=== PATIENT | female | born 1970 | race Caucasian/White ===

== ENCOUNTER 2017-08-02 16:51 | Outpatient (RCR) | payer OTHER ==
[~2017-08-02 16:51] MED LIST: ADVAIR; ALBU0.8322 IH; ALBU17AE23 IH; CARV25TA PO; CETI10CA PO; CHOL500019 PO; CLIN300C3 PO; CYAN100053 IM; CYMBALTA; DICY20TA57 PO; DULO60CA58 PO; DULO60CA6 PO; FLUT1DIS26 IH; HCT25T PO; LACT1CAP64 PO; LEVO125T6 PO; LNS30CCR PO; LVT.112T PO; MECL-105 PO; MNTL10T PO; NEBI5TAB8 PO; NFNEB10T PO; ONDA-42 SL; PRD10T PO; PREVACID; SULF1TAB38 PO; TRAM-21 PO; TRICOR
== END 2017-10-31 | disposition home or self-care (01) ==
LOC: LAB 16:51
PROVIDERS: ATTEND Nurse Practitioner Family
DX: R19.7 Diarrhea, unspecified (principal)
CPT/HCPCS: 87045; 87046; 87324; 87449

== ENCOUNTER 2018-07-12 02:23 | Emergency (ER) | payer OTHER ==
[~2018-07-12] VITALS: Ht 167.6 cm; Wt 113.4 kg
[2018-07-12] MEDS ORDERED: LACTATED RINGERS 1,000 ML IV ONE (03:47)
[2018-07-12] MEDS ORDERED: RX-OSELTAMIVIR 75 MG (TAMIFLU) BOX OF 10 PO STA (03:47)
[2018-07-12] MEDS ORDERED: ONDANSETRON 4 MG/2 ML (SDV) Z0FRAN IVP ONE (04:00)
[2018-07-12] MEDS ORDERED: KETOROLAC 30 MG/ML VIAL IVP ONE (04:00)
[2018-07-12] MEDS ORDERED: ONDA4TAB11 PO (04:07)
[2018-07-12] MEDS ORDERED: GUAI1TBM19 PO (04:07)
[2018-07-12] MEDS ORDERED: BENZ100C18 PO (04:07)
--- NOTE | 2018-07-12 04:07 | ED Cough/URI ---
General Chief Complaint: Cough/Cold/Flu Symptoms Stated Complaint: FLU SYMPTOMS Nursing Triage Note: AMBULATORY TO ED WITH C/O COUGH FOR A FEW DAYS AND NASAL DRAINAGE. TRIED MUCINEX AND ROBITUSSIN YESTERDAY. NO OTHER MEDICATIONS. C/O NAUSEA, NO VOMITING, UNKNOWN IF HAD FEVER BUT FEELS HOT AND COLD ON AND OFF, PRESENTS THIS AM "FEELING DEHYDRATED, HEADACHE TO BILATERAL TEMPLES AND BEHIND BOTH EYES. Source: patient History of Present Illness Date Seen by Provider: Jul 12, 2018 Time Seen by Provider: 03:25 Initial Comments PT ARRIVES VIA POV FROM HOME C/O "FLU SYMPTOMS" SINCE TUESDAY AFTERNOON WORSE ON TUESDAY/EARLIER TODAY C/O NON-PRODUCTIVE COUGH AND NASAL CONGESTION WITH CLEAR NASAL DRAINAGE C/O HEADACHE C/O BODY ACHES C/O CHILLS, NO KNOWN FEVER BUT HAS NOT CHECKED TEMP + NAUSEA, NO VOMITING NO CHEST PAIN OR SHORTNESS OF BREATH, BUT HER CHEST AND BODY HURT WHEN SHE COUGHS HAS COPD AND USES ADVAIR DAILY AND RESCUE INHALER PRN, WHICH SHE HAS USED A FEW TIMES STATES "I FEEL REALLY DEHYDRATED" STATES SHE HAS NOT BEEN DRINKING, --"JUST DIDN 'T FEEL LIKE IT" AND HAS BEEN SLEEPING ALOT DRANK 3 OZ OF 7-UP SINCE 0 TONIGHT, AND HAS ONLY HAD 16 OZ OF PEPSI TODAY-- NOTHING ELSE TO DRINK AT ALL TODAY, AND HAS NOT EATEN TODAY. VOIDED "SOMETIME EARLIER TONIGHT" GRAND DAUGHTER HAS HAD " BAD COLD" THIS WEEK AND PT IS AROUND HER ALOT. TOOK MUCINEX AND ROBITUSSIN YESTERDAY, OTHERWISE HAS NOT TAKEN ANYTHING FOR SYMPTOMS PT DID RECEIVE FLU VACCINATION IN MARCH 2018 PCP: DR. CARTER/ NICOLLE CARTER Allergies and Home Medications Allergies Coded Allergies: carbamazepine (Unverified Allergy, Unknown, 05/06/14) Home Medications Albuterol 17 Gm Aerosol, 2 PUFF IH Q4H PRN for WHEEZING, (Reported) Benzonatate 100 Mg Capsule, 1-2 TAB PO TID Prescribed by: ALIYAH WU on 07/12/18 0407 Carvedilol 25 Mg Tablet, 25 MG PO BID, (Reported) Cetirizine Hcl 10 Mg Capsule, 10 MG PO DAILY, (Reported) Cholecalciferol (Vitamin D3) 50,000 Unit Capsule, 50,000 UNIT PO DAILY, ( Reported) Cyanocobalamin 1,000 Mcg/Ml Vial, 1,000 MCG IM UD, (Reported) monthly Duloxetine HCl 60 Mg Capsule.dr, 60 MG PO DAILY, (Reported) Fluticasone/Salmeterol 1 Disk Inhp, 1 PUFF IH BID, (Reported) Guaifenesin/Dextromethorphan 1 Each Tbmp.12hr, 1 EACH PO BID Prescribed by: ALIYAH WU on 07/12/18406 Hydrochlorothiazide 25 Mg Tab, 25 MG PO DAILY, (Reported) Lactobacillus Combo No.11 1 Each Cap.sprink, 1 EACH PO DAILY, (Reported) Lansoprazole 30 Mg Cap, 1 TAB PO DAILY, (Reported) Levothyroxine Sodium 112 Mcg Tab, 112 MG PO DAILY, (Reported) Levothyroxine Sodium 125 Mcg Tablet, 1 EACH PO DAILY Prescribed by: KYMBERLY BOLTON on 08/20/14 123 Meclizine Hcl 25 Mg Tablet, 25 MG PO Q8H Prescribed by: KYMBERLY BOLTON on 08/20/14 123 Ondansetron 4 Mg Tab.rapdis, 4 MG PO Q4H Prescribed by: ALIYAH WU on 07/12/18406 Ondansetron Hcl 4 Mg Tab, 4 MG SL Q4H FOR NAUSEA AND VOMITING Prescribed by: KYMBERLY BOLTON on 08/20/14 123 Prednisone 10 Mg Tab, 10 MG PO DAILY Take 2 tablets on day one Prescribed by: SANTY CAMACHO on 04/15/15 9298 Patient Home Medication List Home Medication List Reviewed: Yes Review of Systems Review of Systems Constitutional: see HPI, chills, dizziness, malaise, weakness EENTM: see HPI, nose congestion; No throat pain Respiratory: see HPI, cough; No short of breath; wheezing Cardiovascular: no symptoms reported Gastrointestinal: see HPI; No abdominal pain, No diarrhea; loss of appetite, nausea Genitourinary: see HPI, decreased output Musculoskeletal: see HPI, other (BODY ACHES) Skin: no symptoms reported; No rash Psychiatric/Neurological: See HPI, Headache Hematologic/Lymphatic: No Symptoms Reported Immunological/Allergic: no symptoms reported Past Spiwgjt-Mkwbrj-Lwgmve Hx Patient Social History Alcohol Use: Denies Use Recreational Drug Use: No Smoking Status: Former Smoker (1 PPD, QUIT IN 2008) Recent Foreign Travel: No Contact w/Someone Who Travel: No Recent Infectious Disease Expo: No Recent Hopitalizations: No Immunizations Up To Date Date of Influenza Vaccine: Mar 27, 2018 Past Medical History Surgeries: Yes (TEAR DUCT OPENED) Gallbladder, Thyroidectomy Respiratory: Yes COPD Cardiac: Yes Hypertension Neurological: Yes Neuropathy Reproductive Disorders: No Genitourinary: No Gastrointestinal: Yes Gastroesophageal Reflux Musculoskeletal: No Endocrine: Yes Hypothyroidsim HEENT: No Cancer: No Psychosocial: No Integumentary: No Blood Disorders: No Physical Exam Vital Signs - First Documented 07/12/18 07/12/18 03:23 05:23 Temp 98.3 Pulse 91 Resp 20 B/P (MAP) 125/66 (85) Pulse Ox 99 O2 Delivery Room Air Capillary Refill : Less Than 3 Seconds Height: 5'6" Weight: 250lbs. oz. 113.921242ys; 38.41 BMI Method:Stated General Appearance: WD/WN, no apparent distress, obese, other (LOOKS MILDLY ILL ) HEENT: PERRL/EOMI, other (NASAL CONGESTION, CLEAR NASAL DRAINAGE. NO SINUS TENDERNESS) Neck: normal inspection Respiratory: normal breath sounds, no respiratory distress, no accessory muscle use Cardiovascular: regular rate, rhythm, no edema, no murmur Gastrointestinal: normal bowel sounds, non tender, soft Extremities: normal inspection, normal capillary refill Neurologic/Psychiatric: social services counselor II-XII nml as tested, no motor/sensory deficits, alert, normal mood/affect, oriented x 3 Skin: normal color, warm/dry Progress/Results/Core Measures Suspected Sepsis Recent Fever Within 48 Hours: No Infection Criteria Present: Suspected New Infection New/Unexplained Altered Menta: No Sepsis Screen: No Definite Risk SIRS Temperature:98.3 Pulse: 91 Respiratory Rate: 20 Laboratory Tests 07/12/18 04:05: White Blood Count 7.2 Blood Pressure 125 /66 Mean: 85 Laboratory Tests 07/12/18 04:05: Creatinine 0.82, Platelet Count 293, Total Bilirubin 0.3 Results/Orders Lab Results Laboratory Tests Test 07/12/18 04:05 Range/Units White Blood Count 7.2 4.3-11.0 10^3/uL Red Blood Count 4.12 L 4.35-5.85 10^6/uL Hemoglobin 12.2 11.5-16.0 G/DL Hematocrit 39 35-52 % Mean Corpuscular Volume 93 80-99 FL Mean Corpuscular Hemoglobin 30 25-34 PG Mean Corpuscular Hemoglobin Concent 32 32-36 G/DL Red Cell Distribution Width 14.1 10.0-14.5 % Platelet Count 293 130-400 10^3/uL Mean Platelet Volume 8.6 7.4-10.4 FL Neutrophils (%) (Auto) 79 H 42-75 % Lymphocytes (%) (Auto) 8 L 12-44 % Monocytes (%) (Auto) 12 0-12 % Eosinophils (%) (Auto) 1 0-10 % Basophils (%) (Auto) 0 0-10 % Neutrophils # (Auto) 5.7 1.8-7.8 X 10^3 Lymphocytes # (Auto) 0.6 L 1.0-4.0 X 10^3 Monocytes # (Auto) 0.8 0.0-1.0 X 10^3 Eosinophils # (Auto) 0.1 0.0-0.3 10^3/uL Basophils # (Auto) 0.0 0.0-0.1 10^3/uL Sodium Level 137 135-145 MMOL/L Potassium Level 3.9 3.6-5.0 MMOL/L Chloride Level 100 98-107 MMOL/L Carbon Dioxide Level 25 21-32 MMOL/L Anion Gap 12 5-14 MMOL/L Blood Urea Nitrogen 10 7-18 MG/DL Creatinine 0.82 0.60-1.30 MG/DL Estimat Glomerular Filtration Rate > 60 BUN/Creatinine Ratio 12 Glucose Level 128 H 70-105 MG/DL Calcium Level 9.3 8.5-10.1 MG/DL Corrected Calcium 9.5 8.5-10.1 MG/DL Total Bilirubin 0.3 0.1-1.0 MG/DL Aspartate Amino Transf (AST/SGOT) 99 H 5-34 U/L Alanine Aminotransferase (ALT/SGPT) 56 H 0-55 U/L Alkaline Phosphatase 60 40-136 U/L Total Protein 7.1 6.4-8.2 GM/DL Albumin 3.8 3.2-4.5 GM/DL Micro Results Microbiology 07/12/18 Influenza Types A,B Antigen (YANE) - Final, Complete My Orders Orders - ALIYAH WU DO Influenza A And B Antigens (07/12/18 03:23) Saline Lock/Iv-Start (07/12/18 03:47) Cbc With Automated Diff (07/12/18 03:47) Comprehensive Metabolic Panel (07/12/18 03:47) Saline Lock/Iv-Start (07/12/18 03:47) Lactated Ringers (Lr 1000 Ml Iv Solution (07/12/18 03:47) Ondansetron Injection (Zofran Injectio (07/12/18 04:00) Rx-Oseltamivir Caps (Rx-Tamiflu Caps) (07/12/18 03:47) Ketorolac Injection (Toradol Injection) (07/12/18 04:00) Medications Given in ED Current Medications Medications Dose Ordered Sig/Hugo Route Start Time Stop Time Status Last Admin Dose Admin Ketorolac Tromethamine 30 mg ONCE ONCE IVP 07/12/18 04:00 07/12/18 04:01 DC 07/12/18 04:05 30 MG Lactated Ringer's 1,000 ml @ 0 mls/hr Q0M ONCE IV 07/12/18 03:47 07/12/18 03:49 DC 07/12/18 04:05 999 MLS/HR Ondansetron HCl 4 mg ONCE ONCE IVP 07/12/18 04:00 07/12/18 04:01 DC 07/12/18 04:05 4 MG Vital Signs/I&O 07/12/18 07/12/18 03:23 05:23 Temp 98.3 98.3 Pulse 91 91 Resp 20 20 B/P (MAP) 125/66 (85) 130/65 (86) Pulse Ox 99 O2 Delivery Room Air Capillary Refill : Less Than 3 Seconds Blood Pressure Mean: 85 Progress Note : Progress Note UNEVENTFUL ER STAY PT STATES SHE FEELS BETTER AT DISMISSAL Departure Impression Primary Impression: Influenza A Additional Impressions: Volume depletion MILDLY ELEVATED LIVER ENZYMES Disposition: HOME, SELF-CARE Condition: Improved Departure-Patient Inst. Referrals: FRANCI CARTER DO (PCP/Family) Primary Care Physician Patient Instructions: Dehydration, Adult (DC), Flu, Adult (DC) Add. Discharge Instructions: LOTS OF CLEAR LIQUIDS--WATER, BROTH, JELLO, GATORADE--DRINK ENOUGH SO YOU ARE URINATING EVERY 2-3 HOURS WHILE AWAKE TYLENOL 1 GRAM / MOTRIN 800 MG 4 TIMES A DAY NEEDED FOR PAIN OR FEVER TAKE TAMIFLU TWICE A DAY FOR 5 DAYS FOLLOW UP WITH YOUR DR IN 3-4 DAYS IF NO BETTER RETURN TO ER IF WORSE All discharge instructions reviewed with patient and/or family. Voiced understanding. Scripts Ondansetron (Ondansetron Odt) 4 Mg Tab.rapdis 4 MG PO Q4H for Nausea/Vomiting, #10 TAB Prov: ALIYAH WU DO 07/12/18 Benzonatate (TESSALON PERLES) 100 Mg Capsule 1-2 TAB PO TID for Cough, #30 CAP Prov: ALIYAH WU DO 07/12/18 Guaifenesin/Dextromethorphan (Mucinex Dm ER 1,200-60 mg Tab) 1 Each Tbmp.12hr 1 EACH PO BID for 10 Days, #20 EA Prov: ALIYAH WU DO 07/12/18 ALIYAH WU DO Jul 12, 2018 04:07
[2018-07-12 04:22] LABS: BASOPHILS % (AUTO) 0 % (0-10); EOSINOPHILS # (AUTO) 0.1 10^3/uL (0.0-0.3); EOSINOPHILS % (AUTO) 1 % (0-10); HEMATOCRIT 39 % (35-52); HEMOGLOBIN 12.2 G/DL (11.5-16.0); LYMPHOCYTES # (AUTO) 0.6 X 10^3 (1.0-4.0); LYMPHOCYTES % (AUTO) 8 % (12-44); MEAN CORPUSCULAR HEMOGLOBIN 30 PG (25-34); MEAN CORPUSCULAR HGB CONC 32 G/DL (32-36); MEAN CORPUSCULAR VOLUME 93 FL (80-99); MEAN PLATELET VOLUME 8.6 FL (7.4-10.4); MONOCYTES # (AUTO) 0.8 X 10^3 (0.0-1.0); MONOCYTES % (AUTO) 12 % (0-12); NEUTROPHILS # (AUTO) 5.7 X 10^3 (1.8-7.8); NEUTROPHILS % (AUTO) 79 % (42-75); PLATELET COUNT 293 10^3/uL (130-400); RED BLOOD COUNT 4.12 10^6/uL (4.35-5.85); RED CELL DISTRIBUTION WIDTH 14.1 % (10.0-14.5); WHITE BLOOD COUNT 7.2 10^3/uL (4.3-11.0)
[2018-07-12 04:42] LABS: ALANINE AMINOTRANSFERASE 56 U/L (0-55); ALBUMIN 3.8 GM/DL (3.2-4.5); ALKALINE PHOSPHATASE 60 U/L (40-136); BILIRUBIN,TOTAL 0.3 MG/DL (0.1-1.0); BUN/CREATININE RATIO 12; CALCIUM 9.3 MG/DL (8.5-10.1); CARBON DIOXIDE 25 MMOL/L (21-32); CHLORIDE 100 MMOL/L (98-107); CREATININE SERUM 0.82 MG/DL (0.60-1.30); GFR ESTIMATED > 60; GLUCOSE 128 MG/DL (70-105); POTASSIUM 3.9 MMOL/L (3.6-5.0); SODIUM 137 MMOL/L (135-145); TOTAL PROTEIN 7.1 GM/DL (6.4-8.2)
[2018-07-12 05:23] VITALS: BP 130/65
== END 2018-07-12 05:24 | disposition home or self-care (01) ==
LOC: EDUNIT# 02:23 → ER 02:25
DX: J10.1 Influenza due to other identified influenza virus with other respiratory manifestations (principal); E86.9 Volume depletion, unspecified; R94.5 Abnormal results of liver function studies; J44.9 Chronic obstructive pulmonary disease, unspecified; I10 Essential (primary) hypertension; E03.9 Hypothyroidism, unspecified; K21.9 Gastro-esophageal reflux disease without esophagitis; Z88.8 Allergy status to other drugs, medicaments and biological substances; Z79.51 Long term (current) use of inhaled steroids; Z79.52 Long term (current) use of systemic steroids; Z87.891 Personal history of nicotine dependence; Z98.890 Other specified postprocedural states
CPT/HCPCS: 36415; 80053; 85025; 87804

== ENCOUNTER 2019-09-14 13:02 | Outpatient (CLI) | payer BC ==
[~2019-09-14] VITALS: Ht 167.7 cm; Wt 105.9 kg
[~2019-09-14 13:02] MED LIST changes: +BENZ100C18 PO; +GUAI1TBM19 PO; +ONDA4TAB11 PO
[2019-09-14 13:10] VITALS: BP 114/70
[2019-09-14] MEDS ORDERED: NS IV 500 ML 500 ML ONE (13:29)
[2019-09-14] MEDS ORDERED: NS IV 500 ML 500 ML IV SCH ×2 (14:00)
[2019-09-14 14:55] VITALS: BP 114/54
[2019-09-14 15:10] VITALS: BP 110/61
[2019-09-14 16:52] VITALS: BP 125/65
[2019-09-14 17:18] LABS: HEMOGLOBIN 7.5 G/DL (11.5-16.0)
--- NOTE | 2019-09-14 17:45 | NUR ---
Hgb 7.5, no further transfusion per protocol. IV dc'd, tip of cath intact. Pt escorted to front door where she was picked up by her ride per private car. Pt verbalizes understanding of post blood instructions, no s/s of distress, or c/o upon discharge.
== END 2019-09-14 17:45 | disposition home or self-care (01) ==
LOC: SDC 13:02
PROVIDERS: ATTEND Nurse Practitioner Family
DX: D64.9 Anemia, unspecified (principal)
CPT/HCPCS: 36415; 36430; 85014; 85018; 86850; 86900; 86901; 86920

== ENCOUNTER 2019-10-01 14:08 | Outpatient (RCR) | payer BC ==
[2019-10-08] MEDS ORDERED: LEVO100T7 PO (15:58)
[2019-10-08] MEDS ORDERED: CETI10TA17 PO (15:58)
[2019-10-08] MEDS ORDERED: HYDR25TA4 PO (15:58)
[2019-10-08] MEDS ORDERED: DULO60CA59 PO (15:58)
[2019-10-08] MEDS ORDERED: MONT10TA26 PO (16:08)
[2019-10-08] MEDS ORDERED: NFNEB10T PO (16:08)
[2019-10-08] MEDS ORDERED: ONDA8TAB13 PO (16:08)
[2019-10-08] MEDS ORDERED: DEXT5TAB19 PO (16:08)
[2019-10-08] MEDS ORDERED: LIOTHYSO5 PO (16:08)
[2019-10-08] MEDS ORDERED: IRON PO (16:12)
== END 2019-12-30 | disposition home or self-care (01) ==
LOC: ONC 14:08
PROVIDERS: ATTEND Internal Medicine Hematology & Oncology
DX: D64.9 Anemia, unspecified (principal)

== ENCOUNTER 2019-10-08 14:37 | Outpatient (RCR) | payer BC ==
[~2019-10-08] VITALS: Ht 167.7 cm; Wt 106.8 kg
[2019-10-08] VITALS (9 sets, daily range): BP systolic 116–131; BP diastolic 61–80
[~2019-10-08 14:37] MED LIST changes: -CETI10TA17 PO; -DEXT5TAB19 PO; -DULO60CA59 PO; -HYDR25TA4 PO; -IRON PO; -LEVO100T7 PO; -LIOTHYSO5 PO; -MONT10TA26 PO; -ONDA8TAB13 PO
[2019-10-08] MEDS ORDERED: DULO60CA59 PO (15:58)
[2019-10-08] MEDS ORDERED: LEVO100T7 PO (15:58)
[2019-10-08] MEDS ORDERED: CETI10TA17 PO (15:58)
[2019-10-08] MEDS ORDERED: HYDR25TA4 PO (15:58)
[2019-10-08] MEDS ORDERED: NS IV 500 ML 500 ML ONE (15:59)
[2019-10-08] MEDS ORDERED: LIOTHYSO5 PO (16:08)
[2019-10-08] MEDS ORDERED: NFNEB10T PO (16:08)
[2019-10-08] MEDS ORDERED: DEXT5TAB19 PO (16:08)
[2019-10-08] MEDS ORDERED: MONT10TA26 PO (16:08)
[2019-10-08] MEDS ORDERED: ONDA8TAB13 PO (16:08)
[2019-10-08] MEDS ORDERED: IRON PO (16:12)
--- NOTE | 2019-10-08 19:19 | NUR ---
Took over care of patient, sitting in recliner, no s/s of distress. iv site assessed. patient states small amount of discomfort but is able to continue. no swelling, redness or firmness at iv site. Addendum: 10/08/19 at 1926 by HAL VARGAS RN Care assumed from Geetha Hampton
--- NOTE | 2019-10-08 21:30 | NUR ---
TRANSFUSION OF 2ND UNIT PRBC COMPLETED. NO S/S OF REACTION. NO FOLLOW UP LAB ORDERS. PATIENT COLLECTED BELONGINGS AND WAS WC ASSISTED TO EXIT BY STAFF. PATIENT LEFT IN STABLE CONDITION BY PRIVATE VEHICLE.
== END 2020-01-06 | disposition home or self-care (01) ==
LOC: SDC 14:37
PROVIDERS: ATTEND Nurse Practitioner Family
DX: D64.9 Anemia, unspecified (principal)
CPT/HCPCS: 36430; 86850; 86900; 86901; 86920; P9016; 36415

== ENCOUNTER → 2019-10-08 | Outpatient (CLI) | payer BC ==
[~2019-10-08] MED LIST changes: +CETI10TA17 PO; +DEXT5TAB19 PO; +DULO60CA59 PO; +HYDR25TA4 PO; +IRON PO; +LEVO100T7 PO; +LIOTHYSO5 PO; +MONT10TA26 PO; +ONDA8TAB13 PO
--- NOTE | 2019-10-08 12:09 | Diagnostic Imaging Report ---
PROCEDURE: US Non-ob pelvis comp/trans. TECHNIQUE: Multiple realtime grayscale images were obtained of the pelvis in various projections endovaginally. Transabdominal imaging was also performed. INDICATION: Dysfunctional uterine bleeding. Anemia. COMPARISON: None available. FINDINGS: The uterus measures 10.0 x 5.4 x 7.9 cm. The myometrium is normal in echogenicity without discrete mass. The endometrium measures up to 2.2 cm and has heterogeneous echogenicity with vascularity noted. The right nor left ovary are seen with certainty. There is a simple cyst in the right adnexa measuring 4.0 x 3.5 x 3.6 cm. No free pelvic fluid. IMPRESSION: 1. Abnormal thickened endometrium measures up to 2.2 cm with vascularity present. This is concerning for endometrial neoplasm versus polyp. If not already performed, a gynecology consultation is recommended. 2. Simple right ovarian cyst measures 4.0 cm could be physiologic in perimenopausal woman. Advise a follow-up pelvic ultrasound in 6-12 months to assess stability. Dictated by: Dictated on workstation # [id number]
== END ==
LOC: RAD 10:15
PROVIDERS: ATTEND Nurse Practitioner
DX: N93.8 Other specified abnormal uterine and vaginal bleeding (principal); D64.9 Anemia, unspecified; N83.201 Unspecified ovarian cyst, right side
CPT/HCPCS: 76830; 76856

== ENCOUNTER → 2020-03-06 | Outpatient (CLI) | payer BC ==
[~2020-03-06] MED LIST changes: +CETI10TA17 PO; +DEXT5TAB19 PO; +DULO60CA59 PO; +HYDR25TA4 PO; +IRON PO; +LEVO100T7 PO; +LIOTHYSO5 PO; +MONT10TA26 PO; +ONDA8TAB13 PO
--- NOTE | 2020-03-06 16:16 | Diagnostic Imaging Report ---
PROCEDURE: US Non-ob pelvis comp/trans. TECHNIQUE: Transabdominal and transvaginal pelvic sonography was performed with limited pelvic Doppler. INDICATION: Excessive menstrual bleeding. FINDINGS: The uterus is retroverted measuring 9.6 x 5.2 x 7.4 cm. Endometrium is abnormally thickened measuring up to 2.7 cm and shows diffuse heterogeneity. No internal vascularity is present. No myometrial mass is identified. Right ovary is not visualized. Left ovary measures 3.1 x 2.4 x 1.7 cm. There appears to be a 17 mm cyst involving the left ovary. The left ovary could not be visualized on transvaginal study. IMPRESSION: 1. Abnormally thickened and heterogeneous endometrium measuring up to 2.7 cm. While this could be owing to hyperplasia, endometrial neoplasm cannot be entirely excluded. 2. Nonvisualized right ovary. Left ovary contains a small cyst. Dictated by: Dictated on workstation # [id number]
== END ==
LOC: RAD 11:51
PROVIDERS: ATTEND Nurse Practitioner Family
DX: N83.202 Unspecified ovarian cyst, left side (principal); N85.8 Other specified noninflammatory disorders of uterus; N92.0 Excessive and frequent menstruation with regular cycle
CPT/HCPCS: 76830; 76856

== ENCOUNTER 2020-03-27 05:39 | Outpatient (RCR) | payer BC ==
[~2020-03-27] VITALS: Ht 167 cm; Wt 108.0 kg
[~2020-03-27 05:39] MED LIST changes: +CYCL1DRO OP; +LANS30TA3 PO
== END 2020-03-28 11:01 | disposition home or self-care (01) ==
LOC: PREOP 05:39
PROVIDERS: ATTEND Obstetrics & Gynecology
DX: Z01.812 Encounter for preprocedural laboratory examination (principal); Z20.828 Contact with and (suspected) exposure to other viral communicable diseases
CPT/HCPCS: 87635

== ENCOUNTER 2020-03-31 11:49 | Day surgery (SDC) | payer BC ==
[~2020-03-31] VITALS: Ht 167 cm; Wt 108.0 kg
[2020-03-31] VITALS (13 sets, daily range): BP systolic 111–157; BP diastolic 50–95
[2020-03-31] MEDS ORDERED: LACTATED RINGERS 1,000 ML IV PRN (12:28)
[2020-03-31] MEDS ORDERED: LACTATED RINGERS 1,000 ML IV SCH ×2 (12:28→13:54)
[2020-03-31] MEDS ORDERED: metroNIDAZOLE 500MG/100ML IVPB 100 ML IV ONE (12:30)
[2020-03-31] MEDS ORDERED: ceFAZolin 2 GM IV Premixed 50 ML IV ONE (12:30)
[2020-03-31] MEDS ORDERED: LIDOCAINE PF 1% 5 ML (XYLOCAINE) AMP ONE (12:31)
[2020-03-31 13:27] LABS: BASOPHILS # (AUTO) 0.1 10^3/uL (0.0-0.1); BASOPHILS % (AUTO) 1 % (0-10); EOSINOPHILS # (AUTO) 0.4 10^3/uL (0.0-0.3); EOSINOPHILS % (AUTO) 3 % (0-10); HEMATOCRIT 33 % (35-52); HEMOGLOBIN 9.1 g/dL (11.5-16.0); LYMPHOCYTES # (AUTO) 3.1 10^3/uL (1.0-4.0); LYMPHOCYTES % (AUTO) 24 % (12-44); MEAN CORPUSCULAR HEMOGLOBIN 24 pg (25-34); MEAN CORPUSCULAR HGB CONC 28 g/dL (32-36); MEAN CORPUSCULAR VOLUME 85 fL (80-99); MEAN PLATELET VOLUME 9.1 fL (9.0-12.2); MONOCYTES # (AUTO) 0.9 10^3/uL (0.0-1.0); MONOCYTES % (AUTO) 7 % (0-12); NEUTROPHILS # (AUTO) 8.2 10^3/uL (1.8-7.8); NEUTROPHILS % (AUTO) 65 % (42-75); PLATELET COUNT 475 10^3/uL (130-400); WHITE BLOOD COUNT 12.8 10^3/uL (4.3-11.0)
[2020-03-31] MEDS ORDERED: MIDAZOLAM 2 MG/2 ML (VERSED) VIAL ONE (13:51)
[2020-03-31] MEDS ORDERED: fentaNYL INJECTION 100 MCG/2 ML AMP ONE ×2 (13:51→15:26)
--- NOTE | 2020-03-31 13:54 | Progress Note-Pre Operative ---
Pre-Operative Progress Note H&P Reviewed The H&P was reviewed, patient examined and no changes noted. Date Seen by Provider: Mar 31, 2020 Time Seen by Provider: 13:55 Date H&P Reviewed: Mar 31, 2020 Time H&P Reviewed: 13:55 Pre-Operative Diagnosis: Chronic blood loss anemia, AUB, Endometrial hyperplasia KALEIGH DE DO Mar 31, 2020 13:54
[2020-03-31] MEDS ORDERED: BUPIVACAINE 0.25% 30 ML (SENSORCAINE) VIAL ONE (13:56)
[2020-03-31] MEDS ORDERED: ZOLPIDEM 5 MG (AMBIEN) TAB PO PRN (14:00)
[2020-03-31] MEDS ORDERED: ANTACID SUSP 30 ML UDC (MYLANTA) PO PRN (14:00)
[2020-03-31] MEDS ORDERED: ONDANSETRON 4 MG/2 ML (SDV) Z0FRAN IV PRN (14:00)
[2020-03-31] MEDS ORDERED: SIMETHICONE 80 MG (MYLICON) CHEW PO PRN (14:00)
[2020-03-31] MEDS ORDERED: CHLORASEPTIC LOZENGE MM PRN (14:00)
[2020-03-31] MEDS ORDERED: DOCUSATE SODIUM 100 MG (COLACE) CAP PO PRN (14:00)
--- NOTE | 2020-03-31 14:04 | Discharge Inst-Women's Service ---
Discharge Inst-Women's Serv Depart Medication/Instructions New, Converted or Re-Newed RX: RX on Chart Problems Reviewed?: Yes Consults/Follow Up Additional Follow Up: Yes Activity Activity: Activity as Tolerated Driving Instructions: No Driving for 1 Week NO SMOKING: NO SMOKING Nothing Inside Vagina: No Douching, No [place], No Tampons Diet Discharge Diet: No Restrictions Symptoms to Report to : Bleeding Excessive, Pain Increased, Fever Over 101 Degrees F, Vaginal Bleeding Increase, Questions/Concerns For Any Problems or Questions: Contact Your Physician Skin/Wound Care Infection Signs and Symptoms: Increased Redness, Foul Odor of Wound, Increased Drainage, Skin Itchy or Has a Rash, Increased Swelling, Temperature Above 101 F Operative Area Clean and Dry: Keep Incision Clean/Dry Stitches/[place]/Dermabond: Dermabond, Care of Stitches Bathing Instructions: KALEIGH Nascimento DO Mar 31, 2020 14:04
[2020-03-31] MEDS ORDERED: DCS100C PO (14:06)
[2020-03-31] MEDS ORDERED: SIME80TA16 PO (14:06)
[2020-03-31] MEDS ORDERED: IBUP-844 PO (14:06)
[2020-03-31] MEDS ORDERED: HYDR-34 PO (14:06)
[2020-03-31] MEDS ORDERED: SEVOFLURANE (ULTANE) 15 ML INHAL SOLN ONE ×7 (14:24→15:26)
[2020-03-31] MEDS ORDERED: ONDANSETRON 4 MG/2 ML (SDV) Z0FRAN ONE (14:24)
[2020-03-31] MEDS ORDERED: LIDOCAINE PF 2% 5 ML (XYLOCAINE) VIAL ONE (14:24)
[2020-03-31] MEDS ORDERED: proPOfol 200 MG/20 ML (DIPRIVAN) VIAL IV ONE (14:24)
--- NOTE | 2020-03-31 15:40 | NUR ---
RT notified of need for IS instruction
[2020-03-31] MEDS ORDERED: KETOROLAC 30 MG/ML VIAL ONE (15:51)
[2020-03-31] MEDS: KETOROLAC 30 MG/ML VIAL IV PRN ×2 (15:57→21:51)
[2020-03-31] MEDS ORDERED: morphine INJ 10 MG/ML 1ML (SYR OR VIAL) IVP ONE (16:00)
[2020-03-31] MEDS ORDERED: PROMETHAZINE INJ 25 MG/ML (PHENERGAN) AMP IVP ONE (16:00)
[2020-03-31] MEDS ORDERED: HYDROmorphone 2 MG/ML VIAL (DILAUDID) IV ONE (16:00)
[2020-03-31] MEDS ORDERED: MEPERIDINE (DEMEROL) INJ 50 MG/ML IVP ONE (16:00)
[2020-03-31] MEDS: ONDANSETRON 4 MG/2 ML (SDV) Z0FRAN IVP PRN ×2 (16:42→16:58)
--- NOTE | 2020-03-31 16:45 | NUR ---
Pt to room 303 via bed accompanied by PACU staff. RN to room, report rec'd bedside from Randall Kim RN. Calf SCD's on and activated. IV fluids to pump. Phelps catheter patent, draining clear yellow urine to dependent drainage. VS taken. Assessment completed. Fresh ice water provided along with crackers. 2 Lortab given for c/o pain. Pt oriented to room and call light. Pt denies needs or concerns at this time.
[2020-03-31] MEDS ORDERED: HYDROcodone/APAP 7.5 MG/325 MG (LORTAB, LORCET PLUS) TABLET PO ONE (17:07)
[2020-03-31] MEDS: HYDROcodone/APAP 7.5 MG/325 MG (LORTAB, LORCET PLUS) TABLET PO PRN (17:17)
--- NOTE | 2020-03-31 18:45 | NUR ---
Dr. Rubin contacted, orders clarified for johansen removal. Orders to remove at 2000 tonight
--- NOTE | 2020-03-31 20:00 | NUR ---
Phelps catheter removed per Oly Mccray RN at this time. Pt voices urge to void and requests assistance to bathroom. Pt ambulates to bathroom without incident accompanied by Oly Mccray RN. Pt unable to void at this time. Pt assisted back to bed, no needs or concerns voiced at this time.
--- NOTE | 2020-03-31 21:00 | NUR ---
Report received from Liza Kapadia rn at this time.
--- NOTE | 2020-03-31 21:45 | NUR ---
Rn to room, pt up to void, positive void noted. Plan of care discussed with pt. Fresh ice water given. Pt verbalized understanding.
[2020-04-01 00:44] VITALS: BP 103/64
[2020-04-01 02:00] VITALS: BP 91/46
--- NOTE | 2020-04-01 02:35 | OPERATIVE REPORT ---
DATE OF SERVICE: PREOPERATIVE DIAGNOSES: 1. A 49-year-old female with chronic blood loss anemia. 2. Endometrial hyperplasia. POSTOPERATIVE DIAGNOSES: 1. A 49-year-old female with chronic blood loss anemia. 2. Endometrial hyperplasia. PROCEDURE: Robotic-assisted total laparoscopic hysterectomy with bilateral salpingectomy. SURGEON: Michael Rubin DO SERVICE CREW SUPERVISOR: Fidelia Gentile DNP, was necessary for manipulation and retraction throughout the procedure. ANESTHESIA: General endotracheal. ESTIMATED BLOOD LOSS: Minimal. URINE OUTPUT: 150 mL clear at the end of the procedure. FLUIDS: 1400 mL lactated Ringer's solution. FINDINGS: A bulky hyperemic-appearing uterus with grossly normal appearing bilateral fallopian tubes and ovaries. SPECIMEN SENT: Uterus, cervix, bilateral fallopian tubes. INDICATIONS FOR PROCEDURE: This 49-year-old female is a patient was sent to me by Yamila Hernandez, nurse practitioner. She had initially tried more conservative measures with the patient. She has been dealing with heavy bleeding for years to the point where the patient has become significantly anemic. Her hemoglobin dropped as low as 6 at one point and was given iron infusions and ended up getting blood transfusion in order to bring her blood count back up. She continued to have bleeding despite more conservative measures and therefore was consulted to my office for consideration of definitive management. I discussed with the patient in detail her preoperative diagnosis, risks of the procedure were discussed with the patient in detail including risk of bleeding, infection, damage to surrounding structures including, but not limited to bowel, bladder, ureter, kidneys, possible need for reoperation, postoperative complications that may occur, risk from anesthesia, recovery timeframe and even . After everything was discussed with the patient in detail, consent was obtained in the preoperative area and the patient was taken to the operating room. OPERATIVE REPORT IN DETAIL: Once in the operating room, anesthesia was found to be adequate. She was placed in dorsal lithotomy position, prepped and draped in normal sterile fashion. A timeout was performed. A Phelps catheter was placed using sterile technique. A weighted speculum was inserted in the patient's vagina. Right angle retractor was used to visualize the cervix, which was grasped at 12 o'clock position using a long Allis clamp. An 0 Vicryl suture was then placed in the anterior lip of the cervix, which allows for excellent manipulation and retraction. I then placed a Latoya uterine manipulator to a depth of 8 cm and deployed the balloon. A 4 cm colpotomy ring is advanced around the cervix as well. Once the Latoya uterine manipulator was in place, I removed all other instruments from the patient's vagina, performed change of gloves, turned my attention to the abdomen where infraumbilically I infiltrated this area using 0.25% Marcaine and make an 8 mm incision with a knife and directed Veress needle through the incision until intraperitoneal placement was confirmed using saline drop test. An opening pressure of 5 mmHg was noted. I proceeded to maximum pressure of 15 mmHg, at which point I removed the Veress needle and introduced an 8 mm blunt laparoscopic trocar. Once this was in place, I am able to confirm intraperitoneal placement using da Priscila laparoscope. I then placed two davinci trocars, both 8 cm lateral to my infraumbilical trocar, these are 8 mm trocar sites. Once both of these trocars were placed under direct visualization and laparoscope by bringing the da Priscila robot and docked in appropriate fashion. Placing the vessel sealer in the left hand and monopolar jayde in the right hand, I performed the following dissection using the da Priscila instruments. I started the uteroovarian ligament. I bipolar cauterized and transected using the vessel sealer. I then created a window in the mesosalpinx laterally and amputated the fallopian tube away from the surrounding blood supply. I then grasped the round ligament with the vessel sealer, bipolar cauterized and transected this using the vessel sealer. I then I am able to grasp the entire broad ligament, which I then bipolar cauterized and transected using vessel sealer down to the level of the lower uterine segment, at which point I the anterior and posterior leaflets of the broad ligament. Anterior leaflet was taken around the anterior vaginal fornix, posterior leaflet was taken around to the posterior vaginal fornix. This allows me to skeletonize the uterine vessels laterally, which I bipolar cauterized and transected using the vessel sealer. I then created a colpotomy at 12 o'clock position using monopolar jayde and took this circumferentially around the vaginal fornix, amputating the cervix away from the vagina. I then removed the cervix, uterus and bilateral fallopian tubes through the vagina. The lateral vaginal apices of the vaginal cuff are then reapproximated using 2-0 Vicryl suture in a [id number] fashion colposuspending them to the uterosacral ligaments. I then reapproximated the remainder of the vaginal cuff using 2-0 V-Loc in a running fashion, after which there was no active bleeding noted from any of my dissection planes. I copiously irrigated the pelvis using normal saline and undocked the da Priscila robot. I proceeded with remainder of the case laparoscopically. Once the pelvis was copiously irrigated, there was no active bleeding noted from any of my dissection planes. I placed FloSeal hemostatic agent over all my planes of dissection to ensure excellent postoperative hemostasis. I then had the patient taken out of steep Trendelenburg where I removed the lateral trocars under direct visualization of laparoscope. The infraumbilical trocar was left in place to release the remaining insufflation and to introduce 10 mL of 0.25% Marcaine into the peritoneal cavity for postoperative pain management. I then removed this trocar as well. The skin was reapproximated using 4-0 Monocryl in interrupted subcuticular stitches. Dermabond was applied to the incisions and Band-Aids were placed over these. The patient tolerated the procedure well and sent to recovery area in stable condition. Lap and sponge counts were correct at the end of procedure. Instrument counts correct as well. Two grams of Ancef, 500 mg of Flagyl were given preoperatively for infection prophylaxis. Job ID: [id number] DocumentID: [id number] Dictated Date: 03/31/2020 16:19:39 Facing Machine Operator Date: 04/01/2020 02:34:46 Dictated By: DO MARII WELLS
[2020-04-01] MEDS: KETOROLAC 30 MG/ML VIAL IV PRN (04:13)
[2020-04-01 04:15] VITALS: BP 119/67
[2020-04-01] MEDS: HYDROcodone/APAP 7.5 MG/325 MG (LORTAB, LORCET PLUS) TABLET PO PRN (04:19)
--- NOTE | 2020-04-01 04:33 | NUR ---
pt up to void, fresh ice pack given, ice water, cola, and crackers per request.
[2020-04-01] MEDS ORDERED: IBUPROFEN 600 MG (MOTRIN) TAB PO SCH (06:45)
[2020-04-01 09:05] VITALS: BP 116/60
[2020-04-01] MEDS ORDERED: FLU QUADRIvalent (3YOA+) 60 mcg/0.5 ml 2020-21 (AFLURIA) IM ONE (10:00)
--- NOTE | 2020-04-01 10:01 | Anesthesia-General Post-Op ---
General Patient Condition Mental Status/LOC: Same as Preop Cardiovascular: Satisfactory Nausea/Vomiting: Absent Respiratory: Satisfactory Pain: Controlled Complications: Absent Post Op Complications Complications None Follow Up Care/Instructions Patient Instructions None needed. Anesthesia/Patient Condition Patient Condition Patient is doing well, no complaints, stable vital signs, no apparent adverse anesthesia problems. No complications reported per nursing. NELSON NAPIER CRNA Apr 01, 2020 10:01
[2020-04-01 11:00] VITALS: BP 116/60
--- NOTE | 2020-04-01 11:00 | NUR ---
Home instructions given with verbalized understanding. To exit via wheelchair. Accompanied by this RN
== END 2020-04-01 11:00 | disposition home or self-care (01) ==
LOC: SDC 11:49 → LDRP 16:32 → SDC 04-01 11:00
PROVIDERS: ATTEND Obstetrics & Gynecology
DX: N80.0 Endometriosis of uterus (principal); D50.0 Iron deficiency anemia secondary to blood loss (chronic); J44.9 Chronic obstructive pulmonary disease, unspecified; I10 Essential (primary) hypertension; E78.5 Hyperlipidemia, unspecified; G62.9 Polyneuropathy, unspecified; F32.9 Major depressive disorder, single episode, unspecified; K21.9 Gastro-esophageal reflux disease without esophagitis; E66.9 Obesity, unspecified; Z68.38 Body mass index [BMI] 38.0-38.9, adult; Z87.891 Personal history of nicotine dependence; Z79.899 Other long term (current) drug therapy; Z79.890 Hormone replacement therapy; Z88.8 Allergy status to other drugs, medicaments and biological substances; Z87.442 Personal history of urinary calculi; Z11.2 Encounter for screening for other bacterial diseases
CPT/HCPCS: 36415; 84703; 85025; 86850; 86900; 86901; 87081; 90686

== ENCOUNTER → 2021-05-22 | Outpatient (CLI) | payer BC, OTHER ==
[~2021-05-22] MED LIST changes: +DOCU-239 PO; +HYDR-34 PO; +IBUP-844 PO; +MONT-40 PO; -MONT10TA26 PO; +SIME80TA16 PO
--- NOTE | 2021-05-22 09:00 | Diagnostic Imaging Report ---
INDICATION: Dyspepsia. PROCEDURE: Ultrasound abdomen complete. TECHNIQUE: Multiple real-time grayscale images were obtained of the abdomen in various projections. The liver is enlarged at 22 cm. There is diffuse increased echogenicity throughout the liver consistent with hepatic steatosis. No discrete liver mass is detected. Gallbladder surgically absent. No biliary duct dilatation is seen. Pancreas is unremarkable. Spleen is mildly enlarged at 14.4 cm. Aorta is nonaneurysmal. IVC is patent. The kidneys are without calculi or hydronephrosis. There is no ascites. IMPRESSION: 1. Hepatosplenomegaly and hepatic steatosis. 2. Status post cholecystectomy. No other significant abnormalities detected. Dictated by: Dictated on workstation # [id number]
== END ==
LOC: RAD 08:00
PROVIDERS: ATTEND Nurse Practitioner Family
DX: K76.0 Fatty (change of) liver, not elsewhere classified (principal); K30 Functional dyspepsia; Z90.49 Acquired absence of other specified parts of digestive tract
CPT/HCPCS: 76700

== ENCOUNTER 2022-10-13 17:53 | Emergency (ER) | payer OTHER ==
[~2022-10-13] VITALS: Ht 167 cm; Wt 111.0 kg
[2022-10-13 18:38] LABS: BASOPHILS # (AUTO) 0.1 10^3/uL (0.0-0.1); BASOPHILS % (AUTO) 0 % (0-10); EOSINOPHILS # (AUTO) 0.3 10^3/uL (0.0-0.3); EOSINOPHILS % (AUTO) 2 % (0-10); HEMATOCRIT 38 % (35-52); HEMOGLOBIN 11.7 g/dL (11.5-16.0); LYMPHOCYTES # (AUTO) 4.6 10^3/uL (1.0-4.0); LYMPHOCYTES % (AUTO) 34 % (12-44); MEAN CORPUSCULAR HEMOGLOBIN 25 pg (25-34); MEAN CORPUSCULAR HGB CONC 31 g/dL (32-36); MEAN CORPUSCULAR VOLUME 81 fL (80-99); MEAN PLATELET VOLUME 8.7 fL (9.0-12.2); MONOCYTES % (AUTO) 7 % (0-12); NEUTROPHILS # (AUTO) 7.7 10^3/uL (1.8-7.8); NEUTROPHILS % (AUTO) 56 % (42-75); PLATELET COUNT 362 10^3/uL (130-400); WHITE BLOOD COUNT 13.8 10^3/uL (4.3-11.0)
--- NOTE | 2022-10-13 18:40 | ED General ---
General Chief Complaint: General Problems/Pain Stated Complaint: FEELING FAINT Nursing Triage Note: PT AMB TO RM 7 PT CO OF NOT FEELING RIGHT. STATES FEELS CHEST PRESSURE. NUMBNESS IN LIPS, ALONG L JAW, CO OF RAMOS 5/10. STATES STARTED FEELING THESE SYM APPROX 1 HOUR AGO. PT STATES MAYBE SHE ISNT TALKING QUITE RIGHT. STATES STARTED FEELING THIS WAY APPROX 1 HOUR AGO. PT STATES HAD NUMBNESS IN L HAND. DENIES AT THIS X. PT STATES HAS GONE TO OF TEENAGER TODAY AND IS A LITTLE STRESSED. Source of Information: Patient (VAGUE HISTORIAN) (JAZMINALIYAH Aldridge ) History of Present Illness Date Seen by Provider: Oct 13, 2022 Time Seen by Provider: 18:10 Initial Comments PT ARRIVES VIA POV PT STATES SHE WAS IN A MEETING AT WORK TODAY AROUND 1600, AND STARTED TO FEEL "NOT QUITE RIGHT" SHE GOT HOT--BUT STATES THE ROOM ALREADY FELT HOT. SHE DID NOT BREAK OUT IN A SWEAT SHE STARTED TO GET A GENERALIZED HEADACHE HER ARMS AND HANDS AND LIPS AND HER LEFT> RIGHT JAW STARTED FEELING NUMB BILATERALLY--LEFT> RIGHT--THIS COMES AND GOES AND IS NOT PRESENT NOW HER CHEST FELT HEAVY--NOT NOW SHE STATES "I FEEL LIKE I CAN'T TALK QUITE RIGHT OR THINK QUITE RIGHT" NO PROBLEMS SWALLOWING NO SHORTNESS OF BREATH NO SWELLING IN LEGS/FEET OR PAIN IN CALVES NO PROBLEMS WALKING NO DIZZINESS OR SYNCOPE SHE HAS HAD ONGOING HEARTBURN FOR THE LAST FEW DAYS--CHRONIC PROBLEM FOR HER, HAS GERD AND TAKES DAILY MEDICATION FOR IT. SHE HAD NAUSEA EARLIER IN THE DAY, BUT NOT NOW. NO VOMITING OR DIARRHEA. NO ABDOMINAL PAIN NO URINARY SYMPTOMS SHE HAS BEEN DRINKING COFFEE TODAY, NO OTHER LIQUIDS SHE HAS EATEN NORMALLY TODAY. STATES SHE HAS BEEN STRESSED TODAY--STATES A VERY STRESSFUL DAY, AND WENT TO THE OF A TEENAGER TODAY--FRIEND'S SON'S . 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 SHE IS NOT ON ASPIRIN OR BLOOD THINNERS NO MISSED DOSES OF MEDICATIONS OR CHANGES IN MEDICATIONS. SHE IS A FORMER SMOKER--SMOKED 1 PPD, QUIT 2008, OCCASIONAL ETOH USE--NO RECENT USE, DENIES DRUG USE PT HAS HAD COVID VACCINE X 3, NO FLU VACCINE PT WORKS FOR [employer]. PCP: NICOLLE CARTER AT DR. CARTER'S OFFICE (ALIYAH WU DO) Allergies and Home Medications Allergies Coded Allergies: carbamazepine (Unverified Allergy, Mild, RASH, 03/26/20) Patient Home Medication List Home Medication List Reviewed: Yes (ALIYAH WU ) Cetirizine HCl (Cetirizine HCl) 10 Mg Tablet, 10 MG PO DAILY, (Reported) Entered as Reported by: SUN CALLAHAN on 10/08/19 155 Cyclosporine (Restasis) 1 Each Droperette, 1 EACH OP DAILY, (Reported) Entered as Reported by: ERVIN AMADOR on 03/26/20 150 Dextroamphetamine/Amphetamine (Adderall 5 mg Tablet) 5 Mg Tablet, 5 MG PO UD, (Reported) Entered as Reported by: SUN CALLAHAN on 10/08/19 1608 Docusate Sodium (Dok) 100 Mg Capsule, 100 MG PO BID PRN for CONSTIPATION-1ST LINE Prescribed by: KALEIGH DE on 03/31/20 140 Duloxetine HCl (Duloxetine HCl) 60 Mg Capsule.dr, 60 MG PO DAILY, (Reported) Entered as Reported by: SUN CALLAHAN on 10/08/19 155 Hydrochlorothiazide (Hydrochlorothiazide) 25 Mg Tablet, 25 MG PO DAILY, (Reported) Entered as Reported by: SUN CALLAHAN on 10/08/19 155 Hydrocodone Bit/Acetaminophen (HYDROcodone/APAP 7.5/325 TAB) 1 Ea Tablet, 2 EA PO Q6H PRN for Pain-See Instructions Prescribed by: KALEIGH DE on 03/31/20 140 Ibuprofen (Ibu) 600 Mg Tablet, 600 MG PO Q6H Prescribed by: KALEIGH DE on 03/31/20 140 Lansoprazole (Prevacid) 30 Mg Tab.rap., 30 MG PO DAILY, (Reported) Entered as Reported by: ERVIN AMADOR on 03/26/20 1506 Levothyroxine Sodium (Levothyroxine Sodium) 100 Mcg Tablet, 100 MCG PO DAILY, (Reported) Entered as Reported by: SUN CALLAHAN on 10/08/19 155 Liothyronine Sodium (Cytomel) 5 Mcg Tablet, 5 MCG PO BID, (Reported) Entered as Reported by: SUN CALLAHAN on 10/08/19 1608 Montelukast Sodium (Montelukast Sodium) 10 Mg Tablet, 10 MG PO DAILY, (Reported) Entered as Reported by: SUN CALLAHAN on 10/08/19 1608 Nebivolol HCl (Bystolic) 10 Mg Tab, 10 MG PO DAILY, (Reported) Entered as Reported by: SUN CALLAHAN on 10/08/19 1608 Simethicone (Simethicone) 80 Mg Tab.chew, 40 MG PO TID PRN for INDIGESTION 2ND LINE Prescribed by: KALEIGH DE on 03/31/20 1406 [Iron] , 65 MG PO DAILY, (Reported) Entered as Reported by: SUN CALLAHAN on 10/08/19 1612 Review of Systems Review of Systems Constitutional: see HPI EENTM: see HPI Respiratory: no symptoms reported Cardiovascular: see HPI Gastrointestinal: see HPI Genitourinary: no symptoms reported Musculoskeletal: no symptoms reported Skin: no symptoms reported Psychiatric/Neurological: See HPI Hematologic/Lymphatic: No Symptoms Reported Immunological/Allergic: no symptoms reported (ALIYAH WU DO) Past Zfjlzto-Vhvsux-Sksufp Hx Patient Social History Tobacco Use?: Yes Tobacco type used: Cigarettes Smoking Status: Former Smoker Substance use?: No Alcohol Use?: Yes Alcohol Frequency: Once in a while Pt feels they are or have been: No (ALIYAH WU DO) Immunizations Up To Date Influenza Vaccine Up-to-Date: No; Not Current First/Initial COVID19 Vaccinat: YES Second COVID19 Vaccination Brian: YES (ALIYAH WU DO) Seasonal Allergies Seasonal Allergies: Yes (ALIYAH WU DO) Past Medical History Surgery/Hospitalization HX: ALPHA GAL ALLERGY, HTN, THYROIDECTOMY, HX TRIGEMINAL NEURALGIA. GERD, HYST, GB Surgeries: Yes (TEAR DUCT OPENED) Eye Surgery, Gallbladder, Hysterectomy, Thyroidectomy Respiratory: Yes (SOB) Asthma, COPD Currently Using CPAP: No Currently Using BIPAP: No Cardiac: Yes (TACHYCARDIA) High Cholesterol, Hypertension, Irregular Heartbeat Neurological: Yes Neuropathy Reproductive Disorders: No Female Reproductive Disorders: Denies [employer] History: Hysterectomy Sexually Transmitted Disease: No HIV/AIDS: No Genitourinary: Yes Kidney Stones Gastrointestinal: Yes Gastroesophageal Reflux Musculoskeletal: No Endocrine: Yes (S/P THYROIDECTOMY FOR BENIGN DISEASE) Hypothyroidsim HEENT: No (GLASSES) Loss of Vision: Denies Hearing Impairment: Denies Cancer: No Psychosocial: Yes Anxiety, Depression Integumentary: No Blood Disorders: Yes (ANEMIA) Adverse Reaction/Blood Tranf: No (HAS HAD BLOOD WITH NO REACTION) (ALIYAH WU DO) Family Medical History SOCIAL HISTORY: -SMOKED 1 PPD, QUIT 2008 -ETOH--OCCASIONAL USE -DRUGS--DENIES USE ADDITIONAL PMH: -"ALPHA GAL" ALLERGY (ALIYAH WU DO) Physical Exam Vital Signs Vital Signs - First Documented 10/13/22 18:05 Temp 36.5 Pulse 66 Resp 23 B/P (MAP) 136/79 (98) Pulse Ox 97 O2 Delivery Room Air (MIGUELANGEL ROMERO MD) Vital Signs Capillary Refill : Less Than 3 Seconds (ALIYAH WU DO) Height, Weight, BMI Height: 5'6" Weight: 250lbs. oz. 113.062321wp; 39.00 BMI Method:Stated General Appearance: No Apparent Distress, WD/WN, Anxious, Obese, Other (FREQUENT BLINKING, BUT IS TEXTING/PLAYING ON HER PHONE THROUGHOUT ER STAY. ANXIOUS. ) HEENT: PERRL/EOMI, Normal ENT Inspection, Pharynx Normal, Moist Mucous Membranes Neck: Full Range of Motion, Normal Inspection, Non Tender, Supple Respiratory: Normal Breath Sounds, No Accessory Muscle Use, No Respiratory Distress Cardiovascular: Regular Rate, Rhythm, No Edema, No JVD, No Murmur, Normal Peripheral Pulses Gastrointestinal: Non Tender, Soft Back: No CVA Tenderness Extremity: Normal Capillary Refill, Normal Inspection, Normal Range of Motion, Non Tender, No Calf Tenderness, No Pedal Edema Neurologic/Psychiatric: Alert, Oriented x3, No Motor/Sensory Deficits, relationship mgr II- XII Norm as Tested; No Abnormal Cerebellar Tests; Other (NIH IS 0. SPEECH IS CLEAR, GAIT IS STEADY. ) Skin: Normal Color, Warm/Dry (ALIYAH WU DO) Progress/Results/Core Measures Suspected Sepsis SIRS Temperature: Pulse: 66 Respiratory Rate: 23 Laboratory Tests 10/13/22 18:35: White Blood Count 13.8H Blood Pressure 136 /79 Mean: 98 Laboratory Tests 10/13/22 18:35: Creatinine 0.77, INR Comment 0.9, Platelet Count 362, Total Bilirubin 0.4 (ALIYAH WU DO) Results/Orders Lab Results Laboratory Tests Test 10/13/22 18:35 10/13/22 18:38 10/13/22 19:15 10/13/22 21:27 Range/Units White Blood Count 13.8 H 4.3-11.0 10^3/uL Red Blood Count 4.77 3.80-5.11 10^6/uL Hemoglobin 11.7 11.5-16.0 g/dL Hematocrit 38 35-52 % Mean Corpuscular Volume 81 80-99 fL Mean Corpuscular Hemoglobin 25 25-34 pg Mean Corpuscular Hemoglobin Concent 31 L 32-36 g/dL Red Cell Distribution Width 16.9 H 10.0-14.5 % Platelet Count 362 130-400 10^3/uL Mean Platelet Volume 8.7 L 9.0-12.2 fL Immature Granulocyte % (Auto) 0 % Neutrophils (%) (Auto) 56 42-75 % Lymphocytes (%) (Auto) 34 12-44 % Monocytes (%) (Auto) 7 0-12 % Eosinophils (%) (Auto) 2 0-10 % Basophils (%) (Auto) 0 0-10 % Neutrophils # (Auto) 7.7 1.8-7.8 10^3/uL Lymphocytes # (Auto) 4.6 H 1.0-4.0 10^3/uL Monocytes # (Auto) 1.0 0.0-1.0 10^3/uL Eosinophils # (Auto) 0.3 0.0-0.3 10^3/uL Basophils # (Auto) 0.1 0.0-0.1 10^3/uL Immature Granulocyte # (Auto) 0.1 0.0-0.1 10^3/uL Erythrocyte Sedimentation Rate 25 0-30 MM/HR Prothrombin Time 12.3 12.2-14.7 SEC INR Comment 0.9 0.8-1.4 Activated Partial Thromboplast Time 32 24-35 SEC D-Dimer 0.29 0.00-0.49 UG/ML Sodium Level 139 135-145 MMOL/L Potassium Level 3.7 3.6-5.0 MMOL/L Chloride Level 101 98-107 MMOL/L Carbon Dioxide Level 25 21-32 MMOL/L Anion Gap 13 5-14 MMOL/L Blood Urea Nitrogen 15 7-18 MG/DL Creatinine 0.77 0.60-1.30 MG/DL Estimat Glomerular Filtration Rate 92 BUN/Creatinine Ratio 19 Glucose Level 110 H 70-105 MG/DL Calcium Level 9.9 8.5-10.1 MG/DL Corrected Calcium 9.9 8.5-10.1 MG/DL Magnesium Level 2.3 1.6-2.4 MG/DL Total Bilirubin 0.4 0.1-1.0 MG/DL Aspartate Amino Transf (AST/SGOT) 29 5-34 U/L Alanine Aminotransferase (ALT/SGPT) 25 0-55 U/L Alkaline Phosphatase 97 40-136 U/L Troponin I < 0.028 < 0.028 <0.028 NG/ML C-Reactive Protein High Sensitivity 1.75 H 0.00-0.50 MG/DL Total Protein 7.4 6.4-8.2 GM/DL Albumin 4.0 3.2-4.5 GM/DL TSH Daniels Testing 1.12 0.35-4.94 UIU/ML Influenza Type A (RT-PCR) Not Detected Not Detecte Influenza Type B (RT-PCR) Not Detected Not Detecte SARS-CoV-2 RNA (RT-PCR) Not Detected Not Detecte Urine Color YELLOW Urine Clarity CLOUDY Urine pH 6.5 5-9 Urine Specific [place] 1.020 1.016-1.022 Urine Protein NEGATIVE NEGATIVE Urine Glucose (UA) NEGATIVE NEGATIVE Urine Ketones NEGATIVE NEGATIVE Urine Nitrite NEGATIVE NEGATIVE Urine Bilirubin NEGATIVE NEGATIVE Urine Urobilinogen 0.2 < = 1.0 MG/DL Urine Leukocyte Esterase TRACE H NEGATIVE Urine RBC (Auto) 1+ H NEGATIVE Urine RBC 0-2 /HPF Urine WBC RARE /HPF Urine Squamous Epithelial Cells RARE /HPF Urine Crystals NONE /LPF Urine Bacteria FEW H /HPF Urine Casts NONE /LPF Urine Mucus NEGATIVE /LPF Urine Culture Indicated NO (MIGUELANGEL ROMERO MD) My Orders Orders - MIGUELANGEL ROMERO MD General/Regular (10/14/22 Breakfast) (MIGUELANGEL ROMERO MD) Medications Given in ED Current Medications Medications Dose Ordered Sig/Hugo Route Start Time Stop Time Status Last Admin Dose Admin Gadoterate Meglumine 20 ml ONCE ONCE IV 10/14/22 07:30 10/14/22 08:29 DC 10/14/22 08:51 20 ML (MIGUELANGEL ROMERO MD) Vital Signs/I&O 10/13/22 10/14/22 18:05 01:01 Temp 36.5 Pulse 66 67 Resp 23 18 B/P (MAP) 136/79 (98) 109/56 (73) Pulse Ox 97 98 O2 Delivery Room Air Room Air (MIGUELANGEL ROMERO MD) Vital Signs/I&O Capillary Refill : Less Than 3 Seconds (ALIYAH WU DO) Blood Pressure Mean: 98 Progress Note : Progress Note CARDIAC WORK UP WELL NEURO WORK UP ORDERED NO CHEST PAIN AT ANY TIME 3 HOUR REPEAT TROPONIN IS NEGATIVE NO NEUROLOGICAL DEFICITS PT WAS GIVEN: -ASPIRIN AND PLAVIX, PER STROKE NEUROLOGIST RECOMMENDATIONS VITALS HAVE BEEN STABLE DURING THIS SHIFT. DISCUSSED TEST RESULTS, RECOMMENDATIONS BY TO OBSERVE HERE AND OBTAIN MRI AND MRA IN THE MORNING. FURTHER TREATMENT RECOMMENDATIONS ARE PENDING THOSE TEST RESULTS, WILL SEND THOSE IMAGES TO FOR EVALUATION. COMPUTERS WENT DOWN FOR A FEW HOURS OF PT'S STAY. REVIEWED PRIOR RECORDS--ALL ER VISITS, WITH OUTPATIENT TESTS/PROCEDURES 0600--CARE TURNED OVER TO DR. ROMERO AT SHIFT CHANGE. MRI/MRA IS PENDING AT THIS TIME. PT HAS RESTED QUIETLY ALL NIGHT, VITALS STABLE, NO NEUROLOGICAL CHANGES. NO COMPLAINTS ALL NIGHT. (ALIYAH WU DO) Progress Note : Time: 10:20 Progress Note Patient has been resting comfortably throughout her ED stay. All of her symptoms have completely resolved except for mild right-sided headache. Vital signs are perfect. No tachycardia, hypoxia, hypo or hypertension noted. She has no focal neurologic deficits. MRI/MRA done this morning, read by radiology as small area of dissection noted at the vertebral artery on the left which is a smaller side, noted as it courses through the C1 transverse foramen. I have spoken with neurology, Dr. Sheppard. He states that this does not need any emergent intervention. He would recommend baby aspirin and cholesterol-lowering medications. He would encourage 3-month repeat imaging to characterize the vessels. She is comfortable with the plan of care. Likely her other bilateral symptoms including the chest discomfort are as a result of panic/anxiety and this vertebral artery dissection was an incidental finding. Patient is agreeable with this. Recommend close follow-up with her primary care provider. She states she believes she has a visit on the fifth. We will let her primary provider decide what cholesterol-lowering agent is the best choice for her. All questions are sought and answered from the patient. Both verbal and written discharge instructions are given. (MIGUELANGEL ROMERO MD) ECG Initial ECG Impression Date: Oct 13, 2022 Initial ECG Impression Time: 18:28 Initial ECG Rate: 65 Initial ECG Rhythm: Normal Sinus Initial ECG Intervals: Normal Initial ECG Impression: Normal Initial ECG Comparisson: No Previous ECG Available Comment INTERPRETED BY ME (ALIYAH WU DO) Diagnostic Imaging Comments CXR--PER RADIOLOGIST REPORT AT 190 FINDINGS: Single frontal view of the chest demonstrates normal heart size and pulmonary vascularity. The lungs are well aerated and clear. No large pleural effusion or pneumothorax is seen. The visualized osseous structures show no acute abnormalities. IMPRESSION: 1. No acute cardiopulmonary process. CT HEAD--PER RADIOLOGIST REPORT AT 193 FINDINGS: The ventricles and cortical sulci are diffusely prominent, compatible with age-related volume loss. There are confluent areas of abnormal low attenuation in the periventricular white matter. This is consistent with chronic small vessel ischemic changes. There is no midline shift or mass-effect. No acute intra-axial hemorrhage is seen. There is no abnormal area of increased or decreased density to suggest acute hemorrhage or edema. No extra-axial mass or collection is present. The bony calvarium is intact. The visualized paranasal sinuses are unremarkable. The mastoid air cells are clear. IMPRESSION: 1. No acute intracranial abnormality. No CT evidence of mass, acute infarct or intracranial hemorrhage. 2. Chronic small vessel ischemic changes in the deep white matter. CT ANGIOGRAM HEAD/NECK WITH CT PERFUSION STUDIES--PER FAXED RADIOLOGIST REPORT A T 2034 ( SEE DETAILED DICTATED REPORT FOR DETAILS, THEY ARE NOT AVAILABLE TO VIEW DUE TO COMPUTER DOWN TIME ) - THERE IS SHORT SEGMENT DISSECTION OF LEFT VERTEBRAL ARTERY IT COURSES THROUGH THE TRANSVERSE FORAMEN OF C1. - THERE IS NO EVIDENCE OF OCCLUSION OR THROMBOSIS - THERE ARE NO OTHER ACUTE OR CRITICAL FINDINGS Reviewed: Reviewed by Me (ALIYAH WU DO) Departure Communication (Admissions) 2035--CALLED [facility]EDA STROKE NEUROLOGIST. CT IMAGES HAVE BEEN CLOUDED TO [facility] 2038--SPOKE WITH DR. OWENS, SHE WILL REVIEW CT IMAGES WITH NEURO- RADIOLOGIST AND CALL BACK 2140--CALLED [facility], THEY WILL CALL BACK 2147--SPOKE WITH DR. OWENS, SHE ADVISES TO ADMIT HERE FOR OBSERVATION, O BTAIN MRI OF HEAD/BRAIN, AND MRA OF HEAD/BRAIN AND NECK IN THE MORNING AND CLOUD IMAGES TO THEM, THEY WILL REVIEW AND CONTACT US WITH RECOMMENDATIONS AT THAT TIME. SHE ADVISES TO START PT ON ASPIRIN AND PLAVIX AT THIS TIME. 2151--SPOKE WITH DR. DUBON, HOSPITALIST, SHE DECLINES ADMIT AT THIS TIME. WILL HOLD PT IN ER FOR OBSERVATION OVERNIGHT, OBTAIN MRI / MRA IMAGING IN THE MORNING AND FOLLOW [facility]'S RECOMMENDATIONS. (ALIYAH WU DO) Impression Primary Impression: Abnormal finding on CT scan Additional Impressions: Situational anxiety Dissection of extracranial vertebral artery Disposition: HOME, SELF-CARE Condition: Improved Departure-Patient Inst. Decision time for Depature: 10:23 (MIGUELANGEL ROMERO MD) Referrals: FRANCI CARTER DO (PCP) Primary Care Physician Patient Instructions: Anxiety, Adult ED Add. Discharge Instructions: You have been diagnosed with a very small arterial dissection in your left vertebral artery. This area of dissection is right in the area of the first cervical vertebrae on the left. It is very small. We have discussed this finding with Dr. Silver PINEDA neurology. His recommendations are baby aspirin daily and a daily cholesterol-lowering agent. Start taking the baby aspirin today. Keep your follow-up appointment with Dr. Carter next week to further discuss cholesterol lowering agents. If you have any new or concerning, emergent symptoms please return to the emergency department for reevaluation. Work/School Note: Work Release Form Date Seen in the Emergency Department: Oct 13, 2022 Return to Work: Oct 15, 2022 Copy Copies To 1: FRANCI CARTER LISA K DO Oct 13, 2022 18:40 MIGUELANGEL ROMERO MD Oct 14, 2022 10:25
[2022-10-13 18:58] LABS: CHLORIDE 101 MMOL/L (98-107); ERYTHROCYTE SEDIMENTATION RATE 25 MM/HR (0-30); POTASSIUM 3.7 MMOL/L (3.6-5.0); SODIUM 139 MMOL/L (135-145)
[2022-10-13 18:59] LABS: CALCIUM 9.9 MG/DL (8.5-10.1)
[2022-10-13 19:01] LABS: GLUCOSE 110 MG/DL (70-105); TOTAL PROTEIN 7.4 GM/DL (6.4-8.2)
[2022-10-13 19:02] LABS: BILIRUBIN,TOTAL 0.4 MG/DL (0.1-1.0); CARBON DIOXIDE 25 MMOL/L (21-32)
[2022-10-13 19:03] LABS: FIBRIN DEGRADATION PRODUCTS 0.29 UG/ML (0.00-0.49); INR 0.9 (0.8-1.4); PROTHROMBIN TIME PATIENT 12.3 SEC (12.2-14.7)
[2022-10-13 19:04] LABS: ALKALINE PHOSPHATASE 97 U/L (40-136); CREATININE SERUM 0.77 MG/DL (0.60-1.30); GFR ESTIMATED 92
[2022-10-13 19:06] LABS: BUN/CREATININE RATIO 19
--- NOTE | 2022-10-13 19:06 | Diagnostic Imaging Report ---
INDICATION: Dizziness. COMPARISON: 04/15/2015. FINDINGS: Single frontal view of the chest demonstrates normal heart size and pulmonary vascularity. The lungs are well aerated and clear. No large pleural effusion or pneumothorax is seen. The visualized osseous structures show no acute abnormalities. IMPRESSION: 1. No acute cardiopulmonary process. Dictated by: Dictated on workstation # [id number]
[2022-10-13 19:07] LABS: ALANINE AMINOTRANSFERASE 25 U/L (0-55); MAGNESIUM 2.3 MG/DL (1.6-2.4)
[2022-10-13 19:20] LABS: BILIRUBIN,URINE NEGATIVE (NEGATIVE); CLARITY,URINE CLOUDY; COLOR,URINE YELLOW; GLUCOSE, URINE (UA) NEGATIVE (NEGATIVE); KETONES,URINE NEGATIVE (NEGATIVE); LEUKOCYTE ESTERASE ,URINE TRACE (NEGATIVE); NITRITE,URINE NEGATIVE (NEGATIVE); PH,URINE 6.5 (5-9); PROTEIN,URINE NEGATIVE (NEGATIVE)
[2022-10-13 19:28] LABS: TSH (THYROID ANALYZER) 1.12 UIU/ML (0.35-4.94)
[2022-10-13 19:32] LABS: BACTERIA,URINE FEW /HPF; RBC,URINE 0-2 /HPF; SQUAMOUS EPITHELIAL CELL,UR RARE /HPF; WBC,URINE RARE /HPF
--- NOTE | 2022-10-13 19:32 | Diagnostic Imaging Report ---
INDICATION: Neuro deficit TECHNIQUE: Routine non contrast-enhanced axial images were obtained from the skull base to the vertex. Auto Exposure Controls were utilized during the CT exam to meet ALARA standards for radiation dose reduction. COMPARISON: 08/20/2014. FINDINGS: The ventricles and cortical sulci are diffusely prominent, compatible with age-related volume loss. There are confluent areas of abnormal low attenuation in the periventricular white matter. This is consistent with chronic small vessel ischemic changes. There is no midline shift or mass-effect. No acute intra-axial hemorrhage is seen. There is no abnormal area of increased or decreased density to suggest acute hemorrhage or edema. No extra-axial mass or collection is present. The bony calvarium is intact. The visualized paranasal sinuses are unremarkable. The mastoid air cells are clear. IMPRESSION: 1. No acute intracranial abnormality. No CT evidence of mass, acute infarct or intracranial hemorrhage. 2. Chronic small vessel ischemic changes in the deep white matter. Report was called to Tamika in the [place] [facility] at 7:26 p.m. by addi. Dictated by: Dictated on workstation # [id number]
[2022-10-13] MEDS ORDERED: IOHEXOL 350 MG/ML 100 ML (OMNIPAQUE 350) VIAL IV ONE (19:45)
[2022-10-13] MEDS ORDERED: NS 100 ML (IVPB) BAG IV ONE (19:45)
[2022-10-13] MEDS ORDERED: HOLD METFORMIN - RECEIVED CONTRAST 20 ML VIAL IV SCH (19:45)
--- NOTE | 2022-10-13 20:14 | Diagnostic Imaging Report ---
INDICATION: Paresthesias. Neuro deficit. COMPARISON: Noncontrast CT head from earlier same day. TECHNIQUE: Post contrast CT head perfusion scan was performed. FINDINGS: Total CBF less than 30% volume: 0 mL. Total Tmax greater than 6 seconds volume: 0 mL. Total mismatch difference: 0 mL. Total mismatch ratio: None. Source images were also created and reviewed and show no large defect on the Tmax, cerebral blood flow, nor cerebral volume images. Comparison of the different sequences also demonstrates no appreciable mismatch. IMPRESSION: Normal CT head perfusion study. Dictated by: Dictated on workstation # [id number]
--- NOTE | 2022-10-13 20:29 | Diagnostic Imaging Report ---
PROCEDURE: CT angiography of the head and CT angiography of the neck with and without contrast. TECHNIQUE: Contiguous noncontrast images were obtained from the skull base through the vertex. After intravenous contrast administration, helical CT angiography of the neck was performed. Source data was reformatted into 3D MIP projections. Delayed post contrast acquisition was also obtained. Auto Exposure Controls were utilized during the CT exam to meet ALARA standards for radiation dose reduction. INDICATION: Chest pressure. Paresthesias. Neuro deficit. COMPARISON: Noncontrast CT head from earlier the same day. FINDINGS: CTA NECK: Included portions of the aortic arch are unremarkable. Origins of the major arch vessels are patent. Bilateral common carotid arteries normal in course and caliber. By NASCET criteria, there is no focal significant stenosis. Carotid bulbs have a normal CT appearance. Portions of the bilateral internal carotid arteries are obscured proximally due to metallic beam-hardening artifact from dental hardware. There is also some suboptimal opacification of the more distal portions of the internal carotid arteries, but no acute abnormality is seen on either side. There is no evidence of dissection or thrombosis. Within the posterior circulation, the left vertebral artery is dominant. The right vertebral artery is diminutive and may terminate within the right PICA. There is short segment dissection of the left vertebral artery as it courses through the transverse foramen of C1 (image 25, series 602). Left vertebral artery is otherwise patent. There is no evidence of occlusion or thrombosis. Osseous structures show no acute abnormality. No lytic or blastic bony lesion is seen. Included portions of the lung apices are clear. CTA [place]: There is normal enhancement of the bilateral anterior and middle cerebral arteries. There is no large vessel occlusion or evidence of large aneurysm or vascular malformation. Within the posterior circulation, there is normal appearance of the basilar artery. There is normal enhancement of the bilateral superior cerebellar and bilateral posterior cerebral arteries. There is no evidence of large vessel occlusion, large aneurysm or vascular malformation. Posterior communicating arteries are not well visualized on either side. POSTCONTRAST CT HEAD: Postcontrast images show no abnormal area of enhancement. There is no new mass effect or midline shift. Ventricles and cortical sulci are stable in size and contour. There is no new large area of loss of persaud-white matter junction differentiation to suggest evolving acute territorial infarct. No intra-axial or extra-axial intracranial hemorrhage is seen. Bony calvarium is intact. Included portions of paranasal sinuses and mastoid air cells are clear. IMPRESSION: 1. Age-indeterminate short segment dissection of the left vertebral artery. No evidence of occlusion or thrombosis. 2. No acute intracranial vascular abnormality. No evidence of large vessel occlusion. 3. No new acute intracranial abnormality. No CT evidence of new acute infarct, mass or hemorrhage. Report was called and faxed to [facility] at 8:25 p.m., by addi. Dictated by: Dictated on workstation # [id number]
[2022-10-13] MEDS ORDERED: ASPIRIN 81 MG CHEW (CHILDREN'S ASA) PO ONE (22:00)
[2022-10-13] MEDS ORDERED: CLOPIDOGREL 75 MG (PLAVIX) TABLET PO ONE (22:00)
[2022-10-14] MEDS ORDERED: CLOPIDOGREL 75 MG (PLAVIX) TABLET ONE (00:57)
[2022-10-14] MEDS ORDERED: ASPIRIN 81 MG CHEW (CHILDREN'S ASA) ONE (00:57)
[2022-10-14] MEDS ORDERED: GADOTERATE 0.5 MMOL/ML (CLARISCAN) 20 ML VIAL IV ONE (07:30)
--- NOTE | 2022-10-14 07:57 | Diagnostic Imaging Report ---
PROCEDURE: MR angiography of the brain without the use of contrast. TECHNIQUE: 3D [id number] non contrast enhanced MR angiography of the head was performed. A source data was reformatted into rotating MIP projections. INDICATION: Syncope and dizziness. Correlation is made to a CTA study of head and neck dated one day earlier. Anterior, and middle cerebral arteries are patent, bilaterally. There is no evidence of focal stenosis. No occlusion is seen. There is no evidence of aneurysm or vascular malformation. Basilar artery has a normal appearance. There is no evidence of adverse change compared to the CTA study IMPRESSION: Unremarkable MR arteriogram of the great vessels of the brain. Dictated by: Dictated on workstation # [id number]
--- NOTE | 2022-10-14 08:05 | Diagnostic Imaging Report ---
PROCEDURE: MR imaging of the brain without contrast. TECHNIQUE: Multiplanar, multisequence MR imaging of the brain was performed without contrast. INDICATION: Right vertebral arterial dissection. Ventricles and sulci are within normal limits for size. There is no restricted diffusion to indicate an infarct. There is no abnormal mass effect or shift of midline structures. Increased T2 signal seen adjacent to the right frontal horn which may represent area of gliosis. There is no evidence of hemorrhage or infarct at this site or elsewhere in the brain. Paranasal sinuses are clear. Flow-voids are seen in the expected locations at [place] although there is no flow void associated with distal right vertebral artery. IMPRESSION: Findings are compatible with absent flow within distal right vertebral artery and clinical correlation is recommended. Otherwise there is no evidence of acute abnormality. In particular, no cerebral infarction is identified. Dictated by: Dictated on workstation # [id number]
--- NOTE | 2022-10-14 09:03 | Diagnostic Imaging Report ---
PROCEDURE: MR angiography neck with contrast. TECHNIQUE: Contrast-enhanced MR angiography of the neck was performed. Source data was reformatted into rotating MIP projection. INDICATION: Vertebral artery dissection. COMPARISON: CTA head and neck 10/13/2022. FINDINGS: Contrast-enhanced MRA demonstrates a conventional aortic arch. The bilateral common carotid and internal carotid arteries demonstrate no high-grade narrowing or evidence of aneurysm or dissection. Stable appearing short segment dissection of the left vertebral artery as it passes through the C1 transverse foramen through just proximal to penetrating the dura. The right vertebral artery is diminutive but is visible by MRA through the V3 segment. The V4 segment is not well seen likely due to its small size. Comparison with CTA demonstrates this appears to terminate as a PICA. IMPRESSION: 1. Stable short segment dissection of the left vertebral artery as it passes through the left C1 transverse foramen and just proximally to penetrating the dura. No stenosis or thrombus is identified. 2. No other high-grade narrowing, aneurysm or dissection involving major arteries in the neck. Dictated by: Dictated on workstation # [id number]
[2022-10-14 10:40] VITALS: BP 126/81
== END 2022-10-14 10:49 | disposition home or self-care (01) ==
LOC: EDUNIT# 17:53 → ER 17:56
DX: I77.74 Dissection of vertebral artery (principal); R93.89 Abnormal findings on diagnostic imaging of other specified body structures; F41.8 Other specified anxiety disorders; Z87.891 Personal history of nicotine dependence; Z20.822 Contact with and (suspected) exposure to COVID-19
CPT/HCPCS: 0042T; 70450; 70496; 70498; 71045; 80053; 81000; 83735; 84443; 84484; 85025; 85379; 85610; 85652; 85730; 86141; 87636; 93041; 36415; 70544; 70548; 70551; 93005

== ENCOUNTER → 2023-03-08 | Outpatient (CLI) | payer BC, OTHER ==
[~2023-03-08] MED LIST changes: +GADOTERATE 0.5 MMOL/ML (CLARISCAN) 20 ML VIAL IV ONE
--- NOTE | 2023-03-08 13:58 | Diagnostic Imaging Report ---
PROCEDURE: MR angiography of the brain without the use of contrast. TECHNIQUE: 3D [id number] non contrast enhanced MR angiography of the head was performed. A source data was reformatted into rotating MIP projections. INDICATION: Syncope and dizziness. COMPARISON: MRA head from 10/14/2022. FINDINGS: Bilateral distal internal carotid arteries remain normal. There is no carotid terminus aneurysm. The M1 and M2 divisions of the middle cerebral arteries are normal. Anterior cerebral arteries are normal. No anterior communicating artery aneurysm. The basilar artery is normal in caliber without terminal aneurysm. The posterior cerebral arteries have conventional origins and are widely patent. No posterior communicating artery aneurysm. IMPRESSION: Unchanged normal MRA head. Dictated by: Dictated on workstation # [id number]
--- NOTE | 2023-03-08 14:55 | Diagnostic Imaging Report ---
PROCEDURE: MR angiography neck with and without contrast. TECHNIQUE: Pre and post contrast-enhanced MR angiography of the neck was performed. Source data was reformatted into rotating MIP projections. INDICATION: Left vertebral artery dissection. COMPARISON: CTA head and neck from 10/13/2022. 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 On [id number] imaging, limited flow is detected within the hypoplastic right vertebral artery, but it does opacify on postcontrast imaging. The short segment dissection involving the V3 (distal extraspinal segment) of the left vertebral artery has a stable configuration and appearance. This does not cause any flow limitation on mcar-my-hnyict imaging or postcontrast imaging. The bilateral common carotid arteries are normal. No stenosis of the proximal internal carotid arteries per the NASCET criteria. The cervical divisions of the internal carotid arteries are normal. IMPRESSION: 1. Short segment dissection flap involving the V3 division of the left vertebral artery is unchanged and causes no flow limitation. Dictated by: Dictated on workstation # [id number]
== END ==
LOC: RAD 08:13
PROVIDERS: ATTEND Nurse Practitioner Family
DX: I77.74 Dissection of vertebral artery (principal)
CPT/HCPCS: 70544; 70549